=== PATIENT | female | born 1960 | race Caucasian/White ===

== ENCOUNTER 2021-02-25 16:27 | Observation (INO) | payer OTHER ==
[~2021-02-25] VITALS: Ht 157.5 cm; Wt 72.1 kg
[2021-02-25 16:52] VITALS: BP 190/84
--- NOTE | 2021-02-25 16:58 | NUR ---
PT SENT TO LOBBY
[2021-02-25 18:35] LABS: BASOPHILS % (AUTO) 0.2 % (0.0-2.0); EOSINOPHILS # (AUTO) 0.1 K/uL (0-0.4); EOSINOPHILS % (AUTO) 3.1 % (0.0-4.0); HEMOGLOBIN 11.2 g/dL (12.0-16.0); LYMPHOCYTES # (AUTO) 1.5 K/uL (2.5-16.5); LYMPHOCYTES % (AUTO) 30.7 % (20.5-51.1); MEAN CORPUSCULAR HEMOGLOBIN 31 pg (27-31); MEAN CORPUSCULAR HGB CONC 33 g/dL (33-37); MEAN CORPUSCULAR VOLUME 95.1 fL (80-94); MONOCYTES # (AUTO) 0.3 K/uL (0.8-1.0); NEUTROPHILS # (AUTO) 2.9 K/uL (1.8-7.7); PLATELET COUNT (AUTO) 98 K/uL (140-450); RED BLOOD CELL COUNT(AUTO) 3.58 MIL/uL (4.20-5.40); RED CELL DISTRIBUTION WIDTH 13.6 % (11.6-13.7); WHITE BLOOD COUNT (AUTO) 4.8 K/uL (4.8-10.8)
[2021-02-25 18:50] LABS: ANION GAP 15.5 (8-16); CARBON DIOXIDE 26.4 mmol/L (21-32); POTASSIUM 5.9 mmol/L (3.5-5.1); TOTAL BILIRUBIN 0.5 mg/dL (0.0-1.0)
[2021-02-25 18:57] LABS: CREATININE 6.1 mg/dL (0.6-1.3)
[2021-02-25] MEDS ORDERED: ASPIRIN 325 MG TAB PO ONE (20:00)
[2021-02-25] MEDS ORDERED: MORPHINE SULFATE 2 MG/ML SYR IVP PRN (21:05)
[2021-02-25] MEDS ORDERED: DEXTROSE 50% 50 ML SYR IVP PRN (21:05)
[2021-02-25] MEDS ORDERED: LORazepam 2 MG/ML VIAL IVP PRN (21:05)
[2021-02-25] MEDS ORDERED: HYDROcodone/APAP 5/325 MG 1 TAB TAB PO PRN (21:05)
[2021-02-25] MEDS ORDERED: ACETAMINOPHEN 325 MG TAB PO PRN (21:05)
[2021-02-25] MEDS ORDERED: INSULIN LISPRO SLIDING SCALE 100 UNITS/ML VIAL SUBQ PRN (21:05)
--- NOTE | 2021-02-25 21:51 | NUR ---
PT TAKEN TO BED 4 VIA W/C
--- NOTE | 2021-02-25 22:17 | NUR ---
60/F BIB SELF WITH C/O DIZZINESS X3 WEEKS WORSENING TODAY. STATES SHE WAS GETTING AN US THIS MORNING AND HAS FELT INCREASINGLY DIZZY. DENIES CP, SOB, FEVER, CHILLS. MEDHX: ESRD (DIALYSIS T SAT), DM ALLERGIES: DENIES
[2021-02-25] MEDS ORDERED: FERR325E14 PO (22:32)
[2021-02-25] MEDS ORDERED: APIX2.5 PO (22:32)
[2021-02-25] MEDS ORDERED: SERT25TA PO (22:32)
[2021-02-25] MEDS ORDERED: LEVO0.083 PO (22:32)
[2021-02-25] MEDS ORDERED: INSU100I7 SQ (22:32)
[2021-02-25] MEDS ORDERED: ATOR40TA PO (22:32)
--- NOTE | 2021-02-25 23:12 | NUR ---
RECEIVED REPORT FROM SALVADOR MELENDEZ FOR CONTINUITY OF CARE
--- NOTE | 2021-02-26 00:30 | NUR ---
Patient appears to be resting comfortably in bed. Vital Signs within normal limits. Respirations even and unlabored.
[2021-02-26 06:39] LABS: BASOPHILS % (AUTO) 0.3 % (0.0-2.0); EOSINOPHILS # (AUTO) 0.1 K/uL (0-0.4); EOSINOPHILS % (AUTO) 2.5 % (0.0-4.0); HEMATOCRIT 28.9 % (36-48); HEMOGLOBIN 9.7 g/dL (12.0-16.0); LYMPHOCYTES # (AUTO) 1.6 K/uL (2.5-16.5); LYMPHOCYTES % (AUTO) 32.4 % (20.5-51.1); MEAN CORPUSCULAR HEMOGLOBIN 31 pg (27-31); MEAN CORPUSCULAR HGB CONC 34 g/dL (33-37); MEAN CORPUSCULAR VOLUME 93.3 fL (80-94); MONOCYTES # (AUTO) 0.3 K/uL (0.8-1.0); MONOCYTES % (AUTO) 6.1 % (1.7-9.3); NEUTROPHILS # (AUTO) 2.9 K/uL (1.8-7.7); NEUTROPHILS % (AUTO) 58.7 % (42.2-75.2); PLATELET COUNT (AUTO) 87 K/uL (140-450); RED CELL DISTRIBUTION WIDTH 13.7 % (11.6-13.7)
--- NOTE | 2021-02-26 07:15 | NUR ---
REPORT GIVEN TO HECTOR MELENDEZ, FOR CONTINUITY OF CARE.
--- NOTE | 2021-02-26 07:16 | NUR ---
RECEIVED REPORT FROM NORA MITCHELL. TRANSFER OF CARE AT THIS TIME.
[2021-02-26 07:18] LABS: CREATINE KINASE MB 0.8 ng/mL (0-3.6)
--- NOTE | 2021-02-26 07:47 | NUR ---
PROIDED PT WITH BREAKFAST TRAY, HOB ELEVATED.
[2021-02-26] MEDS: BLOOD GLUCOSE MONITORING 1 DEV DEV FS SCH ×3 (07:57→16:45)
[2021-02-26 08:05] LABS: ALBUMIN 3.3 g/dL (3.4-5.0); ANION GAP 18.2 (8-16); CARBON DIOXIDE 24.9 mmol/L (21-32); POTASSIUM 5.1 mmol/L (3.5-5.1); TOTAL BILIRUBIN 0.4 mg/dL (0.0-1.0)
--- NOTE | 2021-02-26 08:17 | NUR ---
PT HAD EN EMESIS EPISODE, PROVIDED NEW BLANKET AND GOWN.
[2021-02-26 08:20] LABS: CREATININE 6.2 mg/dL (0.6-1.3)
[2021-02-26] MEDS: ONDANSETRON 4 MG/2 ML VIAL IVP PRN ×2 (08:56→13:27)
[2021-02-26] MEDS ORDERED: ENOXAPARIN 40 MG/0.4 ML SYR SUBQ SCH (09:00)
[2021-02-26] MEDS ORDERED: ASPIRIN 81 MG TAB.CHEW PO SCH (09:00)
--- NOTE | 2021-02-26 10:45 | NUR ---
PT SEEPING, VISIBLE EQUAL RISE AND FALL OF CHEST, VSS, WILL CONTINUE TO MONITOR.
--- NOTE | 2021-02-26 12:45 | NUR ---
DR. ARORA IS EVALUATING PATIENT AT BEDSIDE.
[2021-02-26] MEDS ORDERED: MECL-303 PO (13:41)
--- NOTE | 2021-02-26 13:59 | NUR ---
PT SLEEPING, VISIBLE EQUAL RISE AND FALL OF CHEST, VSS, WILL CONTINUE TO MONITOR.
--- NOTE | 2021-02-26 16:55 | NUR ---
PT SITTING UP AWAKE AND ALERT, VSS, WILL CONTINUE TO MONITOR.
[2021-02-26 17:42] VITALS: BP 157/59
[2021-02-26 18:13] VITALS: BP 157/59
--- NOTE | 2021-02-26 18:14 | NUR ---
Patient discharged with v/s stable. Written and verbal after care instructions given CHEST PAIN OPS and explained. Patient alert, oriented and verbalized understanding of instructions. Wheel Chair Assisted with to car. All questions addressed prior to discharge. ID band removed. Patient advised to follow up with PMD. Rx of MECLIZINE given. Patient educated on indication of medication including possible reaction and side effects. Opportunity to ask questions provided and answered.
== END 2021-02-26 17:00 | disposition home or self-care (01) ==
LOC: MED 16:27 → MTU 21:06
PROVIDERS: ADMIT Hospitalist; ATTEND Hospitalist
DX: R07.89 Other chest pain (principal); R42 Dizziness and giddiness; I48.20 Chronic atrial fibrillation, unspecified; I12.0 Hypertensive chronic kidney disease with stage 5 chronic kidney disease or end stage renal disease; E11.22 Type 2 diabetes mellitus with diabetic chronic kidney disease; N18.6 End stage renal disease; E03.9 Hypothyroidism, unspecified; F41.9 Anxiety disorder, unspecified; F32.9 Major depressive disorder, single episode, unspecified; Z79.4 Long term (current) use of insulin; Z79.899 Other long term (current) drug therapy; Z99.2 Dependence on renal dialysis
CPT/HCPCS: 36415; 71045; 80053; 82550; 82553; 83735; 84484; 85025; 93005; 96374; 96376; 99285; G0378; J2405